=== PATIENT | female | born 1985 | race Caucasian/White ===

== ENCOUNTER 2016-10-10 13:57 | Inpatient (IN) | payer OTHER ==
[~2016-10-10] VITALS: Ht 157.5 cm; Wt 65.8 kg
[~2016-10-10 13:57] MED LIST: HYDR-3498 PO; IBUP-1542 PO; ORPH100T PO; ZOF8 PO
[2016-10-10 14:14] VITALS: Ht 157.5 cm; Wt 65.8 kg
[2016-10-10] MEDS ORDERED: FER325 PO (14:14)
[2016-10-10] MEDS ORDERED: PRENAT PO (14:14)
[2016-10-10 14:15] VITALS: BP 115/59; PULSE 75; RESP 18
--- NOTE | 2016-10-10 14:24 | TRIAGE ---
OB Triage Datetime Report Generated by CPN: 10/10/2016 14:24 Datetime: 10/10/2016 14:17 Vaginal Exam Dilatation (cms): 2.5 Effacement (%): 70 Station: -2 Exam By: james Vaginal Bleeding: None Cervix, Consistency: Moderate Cervix, Position: Midposition Datetime: 10/10/2016 14:12 Assessment Type: Triage Maternal Assessment Level of Consciousness: Fully Conscious DTR's/Clonus: DTRs 2+; No Clonus Headache: Denies Blurred Vision: No Respiratory Effort: Unlabored; Regular Rhythm; Equal Expansion Breath Sounds, Left: Clear and Equal Breath Sounds, Right: Clear and Equal Nausea/Vomiting: Denies RUQ Epigastric Pain: Denies Lower Extremities Edema: None Degree: None Upper Extremities Edema: None Degree: None Facial Edema: None Fall Risk Assessment History of Falling: (0) No Secondary Diagnosis: (0) No Ambulatory Aid: (0) Bedrest/Nurse Assist IV Therapy: (0) No Gait: (0) Normal/Bedrest/Immobile Mental Status: (0) Oriented to Own Ability Fall Score: 0 Fall Risk Score Definition: No Risk: No action required Datetime: 10/10/2016 14:11 Time of Arrival: 10/10/2016 13:51 EGA: 39.0 Arrived By: Ambulatory Arrived From: Home Chief Complaint: PT HERE C/O UC'S SINCE 0500 Movement: Present Contractions: Irregular Rupture of Membranes: Denies Vaginal Bleeding: None Vaginal Discharge: Denies Recent Sexual Intercouse: Denies Abdominal Trauma: Not Applicable Patient Complaints: Contractions; Cramping; Back Pain Time Provider Notified: 10/10/2016 14:20 Provider Notified: [place] Initial Plan: EFM/SVE Datetime: 10/10/2016 14:08 Labor Evaluation Monitor Mode: External Heart Rate Monitor Mode: External US
[2016-10-10] MEDS ORDERED: LACTATED RINGER'S 1,000 ML IV PRN (15:55)
[2016-10-10] MEDS ORDERED: OXYTOCIN 30 UNITS/LR 500 ML IV SCH ×2 (16:00)
[2016-10-10] MEDS ORDERED: MISOPROSTOL 200 MCG TAB PR PRN (16:00)
[2016-10-10] MEDS ORDERED: CARBOPROST 250 MCG INJ IM PRN (16:00)
[2016-10-10] MEDS ORDERED: IBUPROFEN 600 MG TAB PO PRN (16:00)
[2016-10-10] MEDS ORDERED: OXYTOCIN 30 UNITS/LR 500 ML IV PRN (16:00)
[2016-10-10] MEDS ORDERED: LIDOCAINE 1% (MPF) 30 ML INJ INJ PRN (16:00)
[2016-10-10] MEDS ORDERED: BUTORPHANOL 2 MG INJ IV PRN (16:00)
[2016-10-10] MEDS ORDERED: METHYLERGONOVINE 0.2 MG INJ IM PRN (16:00)
[2016-10-10] MEDS: LACTATED RINGER'S 1,000 ML IV SCH ×2 (16:02→21:14)
[2016-10-10 16:38] LABS: ADD SCAN DIFF NO
[2016-10-10 16:42] LABS: BASOPHILS % 0.1 % (0.0-2.0); EOSINOPHILS # 0.1 10^3/ul (0.0-0.5); EOSINOPHILS % 0.8 % (0.0-7.0); HEMATOCRIT 33.2 % (37.0-47.0); HEMOGLOBIN 11.8 g/dl (12.0-16.0); LYMPHOCYTES # 2.1 10^3/ul (0.8-2.9); LYMPHOCYTES % 27.9 % (15.0-51.0); MEAN CORPUSCULAR HEMOGLOBIN 32.9 pg (29.0-33.0); MEAN CORPUSCULAR HGB CONC 35.5 g/dl (32.0-37.0); MEAN CORPUSCULAR VOLUME 92.5 fl (82.0-101.0); MEAN PLATELET VOLUME 10.4 fl (7.4-10.4); MONOCYTE # 0.5 10^3/ul (0.3-0.9); MONOCYTES % 7.3 % (0.0-11.0); NEUTROPHIL # 4.7 10^3/ul (1.6-7.5); NEUTROPHILS % 63.6 % (39.0-77.0); PLATELET COUNT 205 10^3/UL (140-415); RED BLOOD COUNT 3.59 10^6/ul (4.20-5.40); RED CELL DISTRIBUTION WIDTH 13.2 % (11.5-14.5); WHITE BLOOD COUNT 7.4 10^3/ul (4.8-10.8)
[2016-10-10 16:46] LABS: INR 0.89; PARTIAL THROMBOPLASTIN TIME 26.6 Sec (25.0-35.0); PT RATIO 0.9
--- NOTE | 2016-10-10 18:26 | HP ---
Date/Time of Note Date/Time of Note DATE: 10/10/16 TIME: 18:15 OB - History Hx of Present Free Text/Dictation 31 years old female [id number] 39 weeks came to the hospital complaining of uterine contraction which started at 0200 pelvic examination on admission cervix 2-3 cm dilated 70% effaced vertex at -2 station contraction ranging from 3-6-7 minute she is being admitted for expectant management for labor and delivery Chief Complaint: Labor contraction Estimated Due Date: Oct 17, 2016 : 2 Para: 1 Care: Limited Care Obstetrical Complications: None Medical Complications: None Past Family/Social History * Past Medical, Surgical, Family and Obstetric Histories reviewed from chart. Rubella: immune RPR/VDRL: Negative GBS Status: Negative HBsAG: Negative OB Admission Exam Vital Signs Vital Signs Vital Signs Date Time Temp Pulse Resp B/P Pulse Ox O2 Delivery O2 Flow Rate FiO2 10/10/16 14:15 98.5 75 18 115/59 97 Room Air Physical Exam HEENT: WNL Heart: Rhythm Normal Lungs: Clear, Equal Abdomen: WNL Extremities: Normal Cervical Dilatation: 2cm Effacement: 75% Station: -2 Membranes: Intact Heart Rate: 130's Accelerations: Accelerations Present Decelerations: No Decelerations Varibility: Moderate Contractions on Admission: 6-10 Minutes Apart Intensity: Moderate Last 72 hours Lab Results CBC & BMP 10/10/16 14:50 OB Assessment/Plan Reason for admission: other (39 weeks early labor will observe for expecting management for delivery) Plan: Expectant Management JUAN GUTHRIE MD Oct 10, 2016 18:26
[2016-10-10] MEDS ORDERED: NALOXONE (0.4 MG/ML) INJ IV PRN (21:30)
[2016-10-10] MEDS ORDERED: DIPHENHYDRAMINE 50 MG INJ IV PRN (21:30)
[2016-10-10] MEDS ORDERED: HYDROmorphONE 1 MG/ML SYG IV PRN ×2 (21:30)
[2016-10-10] MEDS ORDERED: ONDANSETRON 4 MG INJ IV PRN (21:30)
[2016-10-11] VITALS (8 sets, daily range): BP systolic 104–136; BP diastolic 55–85; PULSE 71–95; RESP 18–76
[2016-10-11] MEDS: FENTAnyl 2MCG/ML-ROPIV 0.2% 100 ML BAG EPI SCH ×2 (00:21→04:19)
[2016-10-11] MEDS: LACTATED RINGER'S 1,000 ML IV SCH (04:19)
[2016-10-11] MEDS ORDERED: MINERAL OIL LIGHT 10 ML VIAL TOP ONE (08:00)
[2016-10-11] MEDS ORDERED: PRENATAL VITAMIN PO SCH (09:00)
[2016-10-11] MEDS ORDERED: FERROUS SULFATE (EC) 325 MG TAB PO SCH (09:00)
--- NOTE | 2016-10-11 10:30 | LDN ---
Date/Time of Note Date/Time of Note DATE: 10/11/16 TIME: 10:25 Delivery Summary Normal spontaneous vaginal delivery of a baby boy from OA position shoulders delivered without difficulty rest of the baby's body followed cord clamped after stopped pulsation placenta is spontaneous expulsion inspected complete blood loss 250 cc patient had small first-degree perineal laceration repaired with 3-0 chromic catgut Placenta Delivered: Spontaneously Meconium: Thick Episiotomy: No Perineal laceration: 1 Laceration repair: First-degree perineal laceration Anesthesia type: Epidural Estimated blood loss: 250 Sponge & Needle done & correct: Yes All needle counts correct: Yes Any foreign bodies felt in the: No Problems: Infant Delivery Information Sex Sex: male Apgars 1 Minute: 8 5 Minute: 9 Suctioning Nose & mouth suctioned at ramona: Yes Delee suction performed: No Umbilical Cord Umbilical cord with: 3 Vessels Cord presentations: nuchal cord Cord Blood was obtained: Yes JUAN GUTHRIE MD Oct 11, 2016 10:30
[2016-10-11] MEDS: IBUPROFEN 600 MG TAB PO SCH ×2 (11:21→17:12)
[2016-10-11] MEDS ORDERED: DIBUCAINE 1% 30 GM OINT PR PRN (11:30)
[2016-10-11] MEDS ORDERED: WITCH HAZEL/GLYCERIN PAD PR PRN (11:30)
[2016-10-11] MEDS ORDERED: ACETAMINOPHEN 325 MG TAB PO PRN (11:30)
[2016-10-11] MEDS ORDERED: ACETAMINOPHEN/CODEINE #3 TAB PO PRN ×2 (11:30)
[2016-10-11] MEDS ORDERED: OXYCODONE/ASPIRIN (4.88/325) TAB PO PRN ×2 (11:30)
[2016-10-11] MEDS ORDERED: LANOLIN 7 GM TUBE TOP PRN (11:30)
[2016-10-11] MEDS ORDERED: ONDANSETRON 4 MG INJ IV PRN (11:30)
[2016-10-11] MEDS ORDERED: BENZOCAINE 20% 56 ML SPRAY TOP PRN (11:30)
[2016-10-11] MEDS: OXYTOCIN 30 UNITS/LR 500 ML IV SCH ×2 (12:31→15:12)
[2016-10-11] MEDS: SENNA/DOCUSATE NA (8.6MG/50MG) TAB PO SCH (21:00)
[2016-10-12] MEDS: IBUPROFEN 600 MG TAB PO SCH ×5 (03:29→23:56)
[2016-10-12 03:46] VITALS: BP 100/68; PULSE 86; RESP 18
[2016-10-12 07:51] VITALS: BP 128/66; PULSE 68; RESP 18
[2016-10-12] MEDS: SENNA/DOCUSATE NA (8.6MG/50MG) TAB PO SCH ×2 (09:09→20:32)
--- NOTE | 2016-10-12 10:47 | PN ---
Date/Time of Note Date/Time of Note DATE: 10/12/16 TIME: 10:45 OB Subjective Subjective Subjective October 12, 2016 day 1 hospital visit Doing Well Afebrile Ambulatory Chest Clear Breasts are soft , Nipples are intact Abdomen is soft Fundus is firm Moderate amount of lochia Perineum is healing well no evidence of infection Current Medications Medications (Trade) Dose Ordered Sig/Migue Route PRN Reason Start Time Stop Time Status Last Admin Dose Admin Lactated Ringer's (Lr) 1,000 ml @ 125 mls/hr Q8H IV 10/10/16 15:55 10/11/16 11:16 DC 10/11/16 04:19 Butorphanol Tartrate (Stadol) 2 mg Q2H PRN IV PAIN 10/10/16 16:00 10/11/16 11:16 DC Lidocaine 30 ml 30 ml ONCE PRN INJ EPISIOTOMY/TEARING 10/10/16 16:00 10/11/16 11:16 DC 10/11/16 09:22 Oxytocin/Lactated Ringer's 500 ml @ 125 mls/hr ONCE -MAY REPEAT X1 IV 10/10/16 16:00 10/11/16 11:16 DC 10/11/16 09:44 Oxytocin/Lactated Ringer's 500 ml @ 125 mls/hr ONCE IV 10/10/16 16:00 10/11/16 11:16 DC Ibuprofen 600 mg 600 mg ONCE PRN PO Mild Pain (Pain Score 1-3) 10/10/16 16:00 10/11/16 11:16 DC Lactated Ringer's 1,000 ml @ 2,000 mls/hr Q30M PRN IV PRE-EPIDURAL BOLUS 10/10/16 15:55 10/11/16 11:16 DC 10/10/16 20:18 Oxytocin/Lactated Ringer's 500 ml @ 0 mls/hr ONCE PRN IV For Hemorrhage Management 10/10/16 16:00 10/11/16 11:15 DC Methylergonovine Maleate (Methergine) 0.2 mg ONCE PRN IM VAGINAL BLEEDING 10/10/16 16:00 10/11/16 11:15 DC Carboprost Tromethamine (Hemabate) 250 mcg ONCE PRN IM VAGINAL BLEEDING 10/10/16 16:00 10/11/16 11:15 DC Misoprostol (Cytotec) 1,000 mcg ONCE PRN ND VAGINAL BLEEDING 10/10/16 16:00 10/11/16 11:15 DC Ferrous Sulfate (Ferrous Sulfate (Ec)) 325 mg DAILY PO 10/11/16 09:00 10/11/16 11:15 DC Prenat Multivit/ Clarion/Iron/Folic Ac () 1 tab DAILY PO 10/11/16 09:00 10/11/16 11:15 DC Naloxone HCl (Narcan) 0.1 mg Q2M PRN IV FOR RESP RATE 8 OR LESS 10/10/16 21:30 10/11/16 11:15 DC Hydromorphone HCl (Dilaudid) 0.2 mg Q3H PRN IV PAIN LEVEL 1-5 10/10/16 21:30 10/11/16 11:15 DC Hydromorphone HCl (Dilaudid) 0.4 mg Q3H PRN IV PAIN LEVEL 6-10 10/10/16 21:30 10/11/16 11:15 DC Diphenhydramine HCl (Benadryl) 25 mg Q6H PRN IV ITCHING 10/10/16 21:30 10/11/16 11:15 DC Ondansetron HCl (Zofran Inj) 4 mg Q6H PRN IV NAUSEA AND/OR VOMITING 10/10/16 21:30 10/11/16 11:15 DC Fentanyl/ Ropivacaine 100 ml EPIDURAL INFUSION EPI 10/10/16 21:30 10/11/16 11:15 DC 10/11/16 04:19 Mineral Oil 20 ml 20 ml ONCE ONCE TOP 10/11/16 08:00 10/11/16 08:01 DC 10/11/16 09:23 Oxytocin/Lactated Ringer's 500 ml @ 125 mls/hr Q4H IV 10/11/16 11:12 10/11/16 19:11 DC 10/11/16 12:31 Ibuprofen (Motrin) 600 mg Q6 PO 10/11/16 12:00 10/12/16 03:29 Acetaminophen (Tylenol Tab) 650 mg Q4H PRN PO PAIN LEVEL 1-5 10/11/16 11:30 Acetaminophen/ Codeine Phosphate (Tylenol No.3) 1 tab Q4H PRN PO PAIN LEVEL 1-5 10/11/16 11:30 Acetaminophen/ Codeine Phosphate (Tylenol No.3) 2 tab Q4H PRN PO PAIN LEVEL 6-10 10/11/16 11:30 Oxycodone/Aspirin (Percodan) 1 tab Q3H PRN PO PAIN LEVEL 1-5 10/11/16 11:30 10/12/16 07:50 Oxycodone/Aspirin (Percodan) 2 tab Q3H PRN PO PAIN LEVEL 6-10 10/11/16 11:30 10/11/16 12:27 Ondansetron HCl (Zofran Inj) 4 mg Q6H PRN IV NAUSEA AND/OR VOMITING 10/11/16 11:30 Senna/Docusate Sodium (Senokot-S) 1 tab BID PO 10/11/16 21:00 10/12/16 09:09 Witch Rula/ Glycerin (Tucks Pads) 1 pad BEDSIDE MEDICATION PRN ND HEMORRHOID/EPISIOTMY PAIN 10/11/16 11:30 10/11/16 12:28 Benzocaine (Dermoplast [place]) 1 spray BEDSIDE MEDICATION PRN TOP HEMORRHOID/EPISIOTMY PAIN 10/11/16 11:30 10/11/16 12:28 Dibucaine (Nupercainal) 1 applic BEDSIDE MEDICATION PRN ND HEMORRHOID/EPISIOTMY PAIN 10/11/16 11:30 10/11/16 12:28 Lanolin (Cqq-E-Xefilu) 1 applic BEDSIDE MEDICATION PRN TOP BEDSIDE FOR GONSALO TO NIPPLES 10/11/16 11:30 10/11/16 12:30 Measles/Mumps/ Rubella Vaccine Live (Mmr Ii Vaccine) 0.5 ml ONCE ONCE SC* 10/13/16 09:00 10/13/16 09:01 No calf tenderness No ankle edema is also doing well SHARAN BARRIOS MD Oct 12, 2016 10:47
[2016-10-12 11:45] VITALS: BP 104/56; PULSE 66; RESP 17
[2016-10-12 16:30] VITALS: BP 117/59; PULSE 71; RESP 16
[2016-10-12 19:20] VITALS: BP 116/72; PULSE 69; RESP 19
[2016-10-13] MEDS: IBUPROFEN 600 MG TAB PO SCH ×2 (05:44→12:19)
[2016-10-13 07:45] VITALS: BP 111/66; PULSE 66; RESP 18
[2016-10-13] MEDS ORDERED: MEASLES,MUMPS,RUBELLA VACCINE INJ SC* ONE (09:00)
[2016-10-13] MEDS: SENNA/DOCUSATE NA (8.6MG/50MG) TAB PO SCH (09:00)
--- NOTE | 2016-10-13 15:47 | PD.PPDC ---
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
[2016-10-13 16:32] VITALS: BP 121/77; PULSE 67; RESP 18
== END 2016-10-13 17:05 | disposition home or self-care (01) | DRG 775 ==
LOC: OBT 13:57 → L-D 13:59 → OBT 14:24 → L-D 14:29 → PP1 10-11 11:52
PROVIDERS: ADMIT Obstetrics & Gynecology; ATTEND Obstetrics & Gynecology
PROC: 10E0XZZ Delivery of Products of Conception, External Approach (ICD-10-PCS; principal; 2016-10-11)
PROC: 0HQ9XZZ Repair Perineum Skin, External Approach (ICD-10-PCS; 2016-10-11)
PROC: 3E033VJ Introduction of Other Hormone into Peripheral Vein, Percutaneous Approach (ICD-10-PCS; 2016-10-11)
DX: O70.0 First degree perineal laceration during delivery (principal); Z37.0 Single live birth; Z3A.39 39 weeks gestation of pregnancy
CPT/HCPCS: 36415; 62319; 85025; 85610; 85730; 86592; 86900; 86901; 99464; G0463; J2590; J3010; J7120

== ENCOUNTER 2018-07-31 10:14 | Emergency (ER) | payer OTHER ==
[~2018-07-31] VITALS: Wt 78.0 kg
[~2018-07-31 10:14] MED LIST changes: +FER325 PO; -HYDR-3498 PO; -IBUP-1542 PO; -ORPH100T PO; +PRENAT PO; -ZOF8 PO
[2018-07-31 10:18] VITALS: BP 112/57; PULSE 78; RESP 18
[2018-07-31] MEDS ORDERED: KETOROLAC 60 MG INJ IM STA (11:16)
[2018-07-31] MEDS ORDERED: IBUP-1542 PO (12:44)
--- NOTE | 2018-07-31 17:57 | ERD ---
ER Documentation Chief Complaint Chief Complaint CSOB,NUMBNESS,CHEST DISCONFORT SINCE YESTERDAY HPI 33-year-old female patient with no significant past medical history presents ED complaining of chest wall pain, feeling short of breath as well as numbness and tingling. Denies any fever, chills, cough, rhinorrhea, nausea, vomiting, diarrhea, neck stiffness. Patient is eating appropriately, tolerating oral intake, has normal bowel movements and good urine output. ROS All systems reviewed and are negative except as per history of present illness. Medications Home Meds Active Scripts Ibuprofen* (Motrin*) 600 Mg Tab, 600 MG PO Q6, #30 TAB Prov:ROOPA CHIN Augusto AMBRIZ 07/31/18 Reported Medications Ferrous Sulfate* (Ferrous Sulfate*) 325 Mg Tabec, 325 MG PO DAILY, TAB 10/10/16 Multivit/Min/Fol Ac/Iron/Pren* ( S*) 1 Tab Tab, 1 TAB PO DAILY, TAB 10/10/16 Allergies Allergies: Coded Allergies: Penicillins (Verified Allergy, Mild, SWELLING AND REDNESS, 04/16/09) PMhx/Soc History of Surgery: No Anesthesia Reaction: No Hx Neurological Disorder: No Hx Respiratory Disorders: No Hx Cardiac Disorders: No Hx Psychiatric Problems: No Hx Miscellaneous Medical Probl: No Hx Alcohol Use: No Hx Substance Use: No Hx Tobacco Use: No FmHx Family History: No diabetes, No coronary disease Physical Exam Vitals Vital Signs Date Temp Pulse Resp B/P (MAP) Pulse Ox O2 O2 Flow FiO2 Time Delivery Rate 07/31/18 97.3 78 18 112/57 99 10:18 (75) Physical Exam Const: Tox-mzd-[id number], well-nourished. In no acute distress. Head: Atraumatic, normocephalic Eyes: Normal Conjunctiva without injection. No purulent discharge. PERRL. EOMI ENT: Normal external ear. Ear canal without erythema. Tympanic membrane pearly keenan without effusion or bulging. Nasal canal clear with normal turbinates. Moist oropharynx without tonsillar exudates. Non-erythematous pharynx. Uvula midline. No drooling. No trismus. Neck: Full range of motion. No meningismus. No cervical lymphadenopathy. Resp: Clear to auscultation bilaterally. No wheezing, rhonchi, rales, or crackles. No accessory muscle use. No retractions. Cardio: Regular rate and rhythm. No murmurs, rubs or gallops. Abd: Soft, non tender, non distended. Normal bowel sounds. No palpable masses. No rebound tenderness. No guarding. Skin: No petechiae or rashes Back: No midline tenderness. No CVA tenderness. Ext: No cyanosis, or edema. Neur: Awake and alert. Psych: Normal Mood and Affect Results 24 hrs Laboratory Tests Test 07/31/18 11:34 POC Beta HCG, Qualitative NEGATIVE Current Medications Medications Dose Sig/Migue Start Time Status Last (Trade) Ordered Route PRN Stop Time Admin Dose Reason Admin Ketorolac 60 mg ONCE STAT 07/31/18 DC 07/31/18 Tromethamine IM 11:16 07/31/18 11:44 (Toradol) 11:17 Procedures/MDM 33-year-old female patient with no significant past medical history presents ED complaining of chest wall pain, shortness of breath, numbness and tingling. Patient is afebrile and nontoxic-appearing. Chest x-ray, EKG was ordered to further evaluate patient. EKG reviewed and interpreted by Dr. Estrella Rate/Rhythm: [68 bpm, Normal Sinus Rhythm] No ectopy, no ST elevations, normal axis. QRS, ST, T-waves: [No changes consistent w/ acute ischemia] Impression: [No evidence of ischemia or arrhythmia] Patient likely has chest wall pain. Patient had pain improvement with Toradol 60 mg IM. Chest x-ray is negative for any pneumonia, pneumothorax, pleural effusion. Patient had tenderness palpation of the chest wall. Low suspicion for acute myocardial infarction, pneumothorax, pneumonia, cardiac tamponade, Bdyqn-Tubbxqhrc-Gerqj Syndrome, Brugada Syndrome, pulmonary embolism, AAA, aortic dissection, thoracic aortic dissection, endocarditis, myocarditis, pericarditis, cocaine-related ischemia, Boerhaave's syndrome, cardiac dysrhythmias,meningitis, intracranial bleed, seizure, stroke, TIA or other emergent conditions. Diagnosis: Chest Wall Pain Discharge medications: Ibuprofen Follow up with primary care physician in 1-2 days. Instructed patient to return to the ED sooner for any worsening symptoms. Patient's questions were answered. Patient is hemodynamically stable. Patient understood and agreed with discharge plan. Patient discharged stable. Disclaimer: Inadvertent spelling and grammatical errors are likely due to EHR/dictation software use and do not reflect on the overall quality of patient care. Also, please note that the electronic time recorded on this note does not necessarily reflect the actual time of the patient encounter. Departure Diagnosis: Primary Impression: Chest wall pain Condition: Stable Patient Instructions: Chest Wall Pain, Costochondritis Referrals: KYLER BRANDT (PCP) [facility] YOU HAVE RECEIVED A MEDICAL SCREENING EXAM AND THE RESULTS INDICATE THAT YOU DO NOT HAVE A CONDITION THAT REQUIRES URGENT TREATMENT IN THE EMERGENCY DEPARTMENT. FURTHER EVALUATION AND TREATMENT OF YOUR CONDITION CAN WAIT UNTIL YOU ARE SEEN IN YOUR DOCTORS OFFICE WITHIN THE NEXT 1-2 DAYS. IT IS YOUR RESPONSIBILITY TO MAKE AN APPOINTMENT FOR FOLOW-UP CARE. IF YOU HAVE A PRIMARY DOCTOR --you should call your primary doctor and schedule an appointment IF YOU DO NOT HAVE A PRIMARY DOCTOR YOU CAN CALL OUR PHYSICIAN REFERRAL HOTLINE AT IF YOU CAN NOT AFFORD TO SEE A PHYSICIAN YOU CAN CHOSE FROM THE FOLLOWING [facility] [address] [facility] [address] [facility] [facility] [address] [facility] [address] [facility] [address] [facility] [facility]. [facility] [address] [facility] [facility] YOU HAVE RECEIVED A MEDICAL SCREENING EXAM AND THE RESULTS INDICATE THAT YOU DO NOT HAVE A CONDITION THAT REQUIRES URGENT TREATMENT IN THE EMERGENCY DEPARTMENT. FURTHER EVALUATION AND TREATMENT OF YOUR CONDITION CAN WAIT UNTIL YOU ARE SEEN IN YOUR DOCTORS OFFICE WITHIN THE NEXT 1-2 DAYS. IT IS YOUR RESPONSIBILITY TO MAKE AN APPOINTMENT FOR FOLOW-UP CARE. IF YOU HAVE A PRIMARY DOCTOR --you should call your primary doctor and schedule and appointment IF YOU DO NOT HAVE A PRIMARY DOCTOR YOU CAN CALL OUR PHYSICIAN REFERRAL HOTLINE AT . IF YOU CAN NOT AFFORD TO SEE A PHYSICIAN YOU CAN CHOSE FROM THE FOLLOWING [facility]: [facility] [address] [place] [address] [facility] [address] [place] [address] [facility] [address] [place] [address] [facility] URGENT CARE/SPECIALTIES Additional Instructions: Call your primary care doctor TOMORROW for an appointment during the next 2-3 days.See the doctor sooner or return here if your condition worsens before your appointment time. ROOPA CHIN PA-C July 31, 2018 17:57
== END 2018-07-31 12:59 | disposition home or self-care (01) ==
LOC: FTE 10:14
DX: R07.89 Other chest pain (principal)
CPT/HCPCS: 71045; 81025; 93005; 96372; J1885; Z7502